=== PATIENT | male | born 1990 | race Caucasian/White ===

== ENCOUNTER 2017-10-31 22:42 | Emergency (ER) | payer BC, OTHER ==
[~2017-10-31 22:42] MED LIST: DAR100 PO; IBUP-1618 PO; KET10 PO; LOR5 PO; NO ROUTINE MEDS; PER PO
[2017-10-31 22:55] VITALS: BP 162/84
[2017-10-31] MEDS ORDERED: AMPH20TA18 PO (22:55)
--- NOTE | 2017-10-31 22:55 | ER Report ---
History and Physical Time Seen By MD: 22:55 HPI/ROS CHIEF COMPLAINT: chest pain HISTORY OF PRESENT ILLNESS: This is a 27 year old male. He is having several days of cough, runny nose and mild sore throat. He is having sharp chest pain that worsens with breathing. Mainly on the right ribs, and a little central chest. Also present with movement. No shortness of breath with this. No nausea or vomiting. No other musculoskeletal pain. No fever or chills. Allergies: Coded Allergies: No Known Drug Allergies (Unverified , 10/31/17) Home Meds Reported Medications Amphet Asp/Amphet/D-Amphet (ADDERALL 20 MG TABLET) 20 Mg Tablet, 10 MG PO DAILY 10/31/17 Discontinued Reported Medications Acetaminophen/Hydrocodone (Lortab 5/500) 5 Mg/500 Mg Tab, 1 - 2 TAB PO Q6H, 0 Refills NO ALCOHOL/DRIVING 06/29/09 Ketorolac Tromethamine (Toradol) 10 Mg Tab, 10 MG PO BID, 0 Refills TAKE WITH FOOD DO NOT TAKE ANY OTHER ANTI INFLAMMATORIES 06/29/09 Ibuprofen (Motrin) 400 Mg Tablet, 400 MG PO PRN, #20 0 Refills LAST DOSE 0515 THIS AM. 06/29/09 [No Routine Meds] No Conflict Check, 0 Refills 10/01/08 Reviewed Nurses Notes: Yes Constitutional Vital Sign - Last 24 Hours 10/31/17 22:55 Temp 97.7 Pulse 82 Resp 11 B/P (MAP) 162/84 Pulse Ox 97 O2 Delivery Room Air Physical Exam General Appearance: The patient is alert, has no immediate need for airway protection and no current signs of toxicity. Eyes: Pupils equal and round no injection. ENT: Normal oral mucosa. Moist mucous membranes. Tympanic membranes are normal. Neck: Neck is supple and non tender. Respiratory: Chest is non tender, lungs are clear to auscultation. Cardiac: regular rate and rhythm Gastrointestinal: Abdomen is soft and non tender, no masses, bowel sounds normal. Musculoskeletal: Extremities have full range of motion. Skin: No rashes or lesions. DIFFERENTIAL DIAGNOSIS: After history and physical exam differential diagnosis was considered for chest pain that appears likely to be pleurisy from viral upper respiratory infection. Medical Decision Making EKG/Imaging EKG Interpretation 12 lead EKG: Rhythm: normal sinus rhythm [place]: normal QRS: normal ST segments: normal ED Course/Re-evaluation ED Course We did a EKG which is noted above. Were given a be doing a couple of lab tests and x-ray. These were delayed because of other patient concerns in the ER. When we were getting ready do these, the patient indicated that he wanted to return home at this point. Because this is almost certainly a pleuritic chest pain given his description and history and on physical, we will go ahead and discharge this time. He knows he can return for reevaluation should he desire at any time. Decision to Disposition Date: Oct 31, 2017 Decision to Disposition Time: 23:27 Depart Departure Latest Vital Signs Vital Signs Date Time Temp Pulse Resp B/P (MAP) Pulse Ox O2 Delivery O2 Flow Rate FiO2 10/31/17 22:55 97.7 82 11 162/84 97 Room Air Impression: Primary Impression: Upper respiratory infection Additional Impression: Pleuritic chest pain Referrals: LUCY GALLOWAY PA-C (PCP) Patient Instructions: Pleurisy (ED) Additional Instructions: Your chest pain appears to be due to inflammation from viral upper respiratory infection. Ibuprofen 200mg over the counter tablets, take 4 tablets three times a day with food. We can do further work-up including x-ray and labs if you are worsening, please return or see your regular doctor for further evaluation. Problem Qualifiers Primary Impression: Upper respiratory infection URI type: unspecified URI Qualified Codes: J06.9 - Acute upper respiratory infection, unspecified IRASEMA BLACKBURN MD Oct 31, 2017 22:55
--- NOTE | 2017-11-01 00:42 | EKG ---
FACILITY: [facility] - [place] PATIENT NAME: MIS TORIBIO : [id number] MR: [id number] V: [id number] EXAM DATE: ORDERING PHYSICIAN: IRASEMA BLACKBURN TECHNOLOGIST: NAMITA Test Reason : CP Blood Pressure : / mmHG Vent. Rate : 081 BPM Atrial Rate : 081 BPM P-R Int : 148 ms QRS Dur : 088 ms QT Int : 380 ms P-R-T Axes : 052 025 055 degrees QTc Int : 441 ms Normal sinus rhythm Normal ECG No previous ECGs available Confirmed by SIENNA RESENDIZ ([id number]) on 11/01/2017 6:33:49 AM Referred By: Confirmed By:SIENNA RESENDIZ
== END 2017-10-31 23:34 | disposition home or self-care (01) ==
LOC: ER 22:49
DX: J06.9 Acute upper respiratory infection, unspecified (principal); R07.81 Pleurodynia
CPT/HCPCS: 93005; 99282

== ENCOUNTER → 2018-08-01 | Outpatient (REF) ==
[~2018-08-01] MED LIST changes: +AMPH20TA18 PO
--- NOTE | 2018-08-01 14:27 | RADIOLOGY IMAGING REPORT ---
FACILITY: [facility] - [place] PATIENT NAME: Wong Miller : 1990 MR: [id number] V: [id number] EXAM DATE: ORDERING PHYSICIAN: LUCY GALLOWAY TECHNOLOGIST: Location: [facility] - [place] Patient: Wong Miller : 1990 Visit/Account:[id number] Date of Sevice: 08/01/2018 Exam type: CHEST SINGLE AP History: Fracture ribs 1 1/2 years ago, left-sided pain Comparison: December 10, 2013 Findings: The anterior aspect of the left fifth rib is not identified and may have been surgically removed. Th e lungs are free of acute effusions of the trachea to edema. There is no evidence of a pneumothorax or pneumomediastinum. The cardiac silhouette is normal in size. The trachea is in midline. IMPRESSION: 1. The anterior aspect of the left fifth rib is not identified and may have been surgically removed No evidence of pulmonary consolidation Report Dictated By: Soni Carpenter MD at 08/01/2018 2:12 PM Report E-Signed By: Soni Carpenter MD at 08/01/2018 2:14 PM WSN:[email or web address]
== END ==
LOC: RAD 12:17
PROVIDERS: ATTEND Physician Assistant
DX: R94.2 Abnormal results of pulmonary function studies (principal)
CPT/HCPCS: 71045

== ENCOUNTER → 2018-09-09 | Outpatient (CLI) | payer OTHER ==
--- NOTE | 2018-09-09 13:19 | RADIOLOGY IMAGING REPORT ---
FACILITY: [facility] - [place] PATIENT NAME: Wong Miller : 1990 MR: [id number] V: [id number] EXAM DATE: ORDERING PHYSICIAN: DONG SANDERS TECHNOLOGIST: Location: [facility] - [place] Patient: Wong Miller : 1990 Visit/Account:[id number] Date of Sevice: 09/09/2018 ABDOMEN COMPLETE HISTORY: Abdominal pain COMPARISON: None. FINDINGS: Liver: Negative. Gallbladder: Unremarkable; no stones or sludge. Common duct: Normal, 2.5 mm diameter. Pancreas: Partially obscured by bowel, visualized aspects unremarkable. Spleen: Negative. Kidneys: Right: 10.5 cm in length. There is no mass, hydronephrosis, or calculus. Normal cortical me dullary echotexture is seen. Left: 10.2 cm in length. There is no mass, hydronephrosis, or calculus. Normal liliya ical medullary echotexture is seen. Upper abdominal aorta and IVC: Patent. IMPRESSION: Normal ultrasound abdomen complete. Report Dictated By: Ady Tim at 09/09/2018 1:13 PM Report E-Signed By: Ady Tim at 09/09/2018 1:16 PM WSN:[email or web address]
== END ==
LOC: US 02:15
PROVIDERS: ATTEND Family Medicine
DX: R10.817 Generalized abdominal tenderness (principal)
CPT/HCPCS: 76700